=== PATIENT | male | born 1945 | race Caucasian/White ===

== ENCOUNTER 2021-11-22 13:02 | Outpatient (CLI) | payer MEDICARE | END 2021-11-22 13:03 | disposition short-term general hospital (02) | LOC: EMS 13:02 | DX: M53.3 Sacrococcygeal disorders, not elsewhere classified (principal); G89.29 Other chronic pain | CPT/HCPCS: A0425; A0429; A0888 ==

== ENCOUNTER 2022-07-15 23:26 | Outpatient (CLI) | payer MEDICARE | END 2022-07-15 23:27 | disposition E | LOC: EMS 23:26 ==